=== PATIENT | female | born 1950 | race American Indian/Alaskan Native ===

== ENCOUNTER 2017-04-13 08:17 | Outpatient (CLI) | payer MEDICARE, BC ==
[2017-04-13 08:49] LABS: Hematocrit 40.5 % (30.3-42.9); Hemoglobin 13.5 gm/dl (10.1-14.3); Mean Corpuscular HGB Conc 33 % (30-34); Mean Corpuscular Hemoglobin 32 pg (28-32); Mean Corpuscular Volume 95 fl (79-97); Platelet Count 174 K/mm3 (140-440); Red Blood Count 4.28 M/mm3 (3.65-5.03); White Blood Count 5.4 K/mm3 (4.5-11.0)
[2017-04-13 08:54] LABS: Bilirubin,Urine NEG (Negative); Blood,Urine NEG (Negative); Ketones,Urine NEG (Negative); Leukocyte Esterase,Urine NEG (Negative); Nitrite,Urine NEG (Negative); Protein,Urine <15 mg/dL mg/dL (Negative); Urobilinogen,Urine < 2.0 mg/dL (<2.0)
[2017-04-13 08:59] LABS: WBC,Urine < 1.0 /HPF (0.0-6.0)
[2017-04-13 09:13] LABS: Albumin 4.3 g/dL (3.9-5); Albumin/Globulin Ratio 1.2 %; BUN/Creatinine Ratio 20.9; Bilirubin,Total 0.3 mg/dL (0.1-1.2); Calcium 9.6 mg/dL (8.4-10.2); Chloride 102.9 mmol/L (98-107); Potassium 4.2 mmol/L (3.6-5.0); Total Protein 7.8 g/dL (6.3-8.2)
== END 2017-04-13 08:18 | disposition home or self-care (01) ==
LOC: CARD 08:17
PROVIDERS: ATTEND Internal Medicine
DX: N39.0 Urinary tract infection, site not specified (principal); R53.83 Other fatigue; R55 Syncope and collapse; I10 Essential (primary) hypertension; M06.9 Rheumatoid arthritis, unspecified
CPT/HCPCS: 36415; 80053; 81001; 85027; 93005; 93010

== ENCOUNTER 2017-05-06 06:25 | Inpatient (IN) | payer BC, MEDICARE, OTHER ==
--- NOTE | 2017-04-28 12:58 | Anesthesia Consultation ---
Anesthesia Consult and Med Hx Date of service: 04/28/17 - Airway Anesthetic Teeth Evaluation: Dentures, Edentulous ROM Head & Neck: Adequate Mental/Hyoid Distance: Adequate Mallampati Class: Class II Intubation Access Assessment: Probably Good - Pulmonary Exam CTA: Yes - Cardiac Exam Cardiac Exam: RRR - Pre-Operative Health Status ASA Pre-Surgery Classification: ASA3 Proposed Anesthetic Plan: Epidural, Spinal Nerve Block: adductor canal - Pulmonary Hx Smoking: Yes (quit 20 yrs ago) Hx Asthma: No SOB: No Hx Sleep Apnea: No ([facility] PRE SCREEN HIGH RISK) - Cardiovascular System Hx Hypertension: Yes (2004) Hx Coronary Artery Disease: No Hx Heart Attack/AMI: No Hx Angina: No Hx Percutaneous Transluminal Coronary Angioplasty (PTCA): No Hx Cardia Arrhythmia: No Hx Pacemaker: No Hx Internal Defibrillator: No Hx Valvular Heart Disease: No Hx Heart Murmur: No Hx Peripheral Vascular Disease: No - Central Nervous System Hx Neuromuscular Disorder: Yes (rheumatoid arthritis) Hx Seizures: No CVA: No Hx Back Pain: No Hx Psychiatric Problems: No - Gastrointestinal Hx Ulcer: No Hx Gastroesophageal Reflux Disease: No - Endocrine Hx Renal Disease: No Hx End Stage Renal Disease: No Hx Cirrhosis: No Hx Liver Disease: No Hx Insulin Dependent Diabetes: No Hx Non-Insulin Dependent Diabetes: No Hx Thyroid Disease: No Hx Hypothyroidism: No Hx Hyperthyroidism: No - Hematic Hx Anemia: No Hx Sickle Cell Disease: No - Other Systems Hx Alcohol Use: Yes (s) Hx Substance Use: No Hx Cancer: No Hx Obesity: Yes
[~2017-05-06 06:25] MED LIST: ANCEF/STERILE WATER 2 GM/20 ML 2 GM/20 ML SYRINGE IV SCH; PEPCID PO NR; VERSED IV NR; ceFAZolin 2 GM in NACL 0.9% 100 ML IV ONE
[2017-05-06] MEDS ORDERED: NACL BACTERIOSTATIC INFILTRATI ONE (06:28)
[2017-05-06] MEDS ORDERED: DIPRIVAN 10 MG/ML IV ONE ×2 (07:31→10:02)
[2017-05-06] MEDS ORDERED: XYLOCAINE MPF 2% ONE (07:32)
[2017-05-06] MEDS ORDERED: ZEMURON IV ONE (07:32)
[2017-05-06] MEDS: NACL 0.9% 1000 ML 1,000 ML IV SCH ×3 (07:35→22:18)
[2017-05-06] MEDS ORDERED: TRANEXAMIC ACID ONE (07:43)
[2017-05-06] MEDS ORDERED: NEOSPORIN GU IR ONE ×2 (07:44→09:57)
[2017-05-06] MEDS ORDERED: MARCAINE-EPI/PF 0.5%-1:200,000 INFILTRATI ONE ×3 (07:44→09:59)
[2017-05-06] MEDS ORDERED: NACL 0.9% 200 ML ONE (07:44)
--- NOTE | 2017-05-06 07:55 | Anesthesia Day of Surgery ---
Anesthesia Day of Surgery - Day of Surgery Patient Examined: Yes Patient H&P Reviewed: Yes Patient is NPO: Yes Beta Blockers: Yes
[2017-05-06] MEDS ORDERED: NEURONTIN ONE (08:08)
[2017-05-06] MEDS ORDERED: SUBLIMAZE ONE (08:09)
[2017-05-06] MEDS ORDERED: DECADRON ONE (08:09)
[2017-05-06] MEDS ORDERED: CLONIDINE 1,000 MCG/10 ML VIAL EP ONE (08:10)
--- NOTE | 2017-05-06 09:40 | Admit Criteria Form ---
Admission Criteria Documentation: AMBULATORY SURGERY EXCEPTION CRITERIA Ambulatory Surgery Exception Criteria ( Place 'X' for any and all applicable criteria): Surgery or procedure performed on ambulatory basis may require inpatient stay for[A] ANY ONE of the following(1)(2)(3)(4)(5)(6)(7)(8)(9): [X] I. A preoperative situation, condition, or finding that warrants inpatient stay as indicated by ANY ONE of the following: [] a) Inpatient care needed because of severity of a disease or condition rather than the surgery (eg, severe cardiac or respiratory disease, severe infection) (15) (16 ) (17) (18) [] b) Emergent procedure (eg, angioplasty for acute ischemia)(19) [] c) Complex surgical approach or situation as indicated by ANY ONE of the following(3): [] i) Open approach needed instead of usual endoscopic, transcatheter, or other less invasive procedure [] ii) Difficult approach because of previous operation [] iii) Airway monitoring required after open neck procedures(20)(21) [] iv) Large mass requiring unusually extensive dissection [] v) Additional complicating feature requiring inpatient care (eg, drain management)(22(23): [X] d) Major surgery in a pt with high anesthetic risk as indicated by ANY ONE of the following (2)(3)(5)(7)(8): [X] i) ASA risk class III or higher (severe systemic disease impairing function) [D] [] ii) Advanced age (eg, older than 85 years)(14)(24) [] iii) Symptomatic heart failure(25) [] iv) Symptomatic asthma or COPD(8)(21) [] v) Morbid obesity with hemodynamic or respiratory problems(20)( 21)(26)(27) [] vi) Obstructive sleep apnea(20)(21) [] vii) Former premature infants who are younger than 60 weeks [] viii) High risk for severe postoperative abnormalities (eg, severe postoperative hypocalcemia after parathyroidectomy for severe hyperparathyroidism)(27)( 28) [] ix) Unstable angina(25) [] e) Drug-related risk requiring inpatient stay as indicated by ANY ONE of the following(5)(10)(14)(32)(33) [] i) Procedure requires discontinuing drugs or other therapy (eg , antiarrhythmic medication, antiseizure medication), which necessitates inpatient observation or treatment.(18)(31) [] ii) Major surgery and high risk drug use as indicated by ANY ONE of the following: [] 1) Active abuse of cocaine or similar drug [] 2) Monoamine oxidase inhibitor use [] 3) Other drug identified as posing risk [] f) Inadequate outpatient care situation as indicated by ANY ONE of the following(5)(10)(14)(32)(33) [] i) Patient lives remote from medical facility and procedure has urgent complication potential, and temporary nearby residence cannot be arranged [] ii) Patient will have postprocedure incapacitation and inadequate assistance at home, or alternative level of care cannot be arranged. [] iii) Patient will have long general anesthesia or procedure side effect resolution time, and competent person to stay with patient on first postoperative night at home or alternative level of care cannot be arranged. []iv) Other inadequate outpatient situation that cannot be handled by other means [] II. A perioperative event, condition, or finding that warrants inpatient stay as indicated by ANY ONE of the following (1)(2)(3): [] a) Inadequate physiologic recovery: cardiovascular, respiratory, or hemodynamic status not normal or near preoperative baseline(18) [] b) Hemodynamic instability [] c) Patient not alert with near normal or baseline mental status [] d) Temperature not normal or as expected and not appropriate for outpatient treatment of condition [] e) Ambulatory or appropriate activity level status not yet achieved post procedure [E](34)(35)(36) [] f) Operative site not appropriate (eg, unexpected or excessive drainage or bleeding) [] g) Postoperative effects not resolved or adequately managed (eg, significant pain or vomiting not appropriate for outpatient or next level of care)(10)(12) [] h) Complicating features requiring inpatient care as indicated by ANY ONE of the following(37): [] i) Severe complications of procedure (eg, bowel injury, airway compromise, vascular injury,severe hemorrhage) [] ii) Extensive (eg, dissection far beyond usual scope of procedure ) or prolonged (eg, 120 minutes beyond usual) surgery needed requiring inpatient postoperative care [] iii) Conversion to an open or complex procedure that requires inpatient care (eg, open vs laparoscopic cholecystectomy, abdominal vs vaginal hysterectomy)(38) [] iv) Comorbid condition or test result identified during or post procedure that requires inpatient care (7) [] v) Malignant hyperthermia(30) [] vi) Other complicating feature requiring inpatient care(22)(23) Inpatient stay may be needed until ALL of the following are present (1)(2)(3)(4) (5)(6)(10)(14)(33)(40): []a) Physiologic recovery: cardiovascular, respiratory, and hemodynamic status normal or near preoperative baseline []b) Hemodynamic stability []c) Patient alert, with near normal or baseline mental status []d) Temperature appropriate: patient afebrile or temperature appropriate for outpt treatment of condition []e) Activity level appropriate: ambulatory or appropriate activity level post procedure []f) Operative site appropriate as indicated by ALL of the following: []i) Site dry or with expected drainage []ii) Any blood noted is as expected for procedure. []g) Postoperative effects resolved or managed as indicated by ALL of the following: []i) Pain management appropriate for outpatient (or next level of) care(10) []ii) Minimal nausea and vomiting: if present, successfully treated with oral medication(12) []iii) Headache, dizziness, or drowsiness (if present) are mild. []h) Voiding status acceptable as indicated by ANY ONE of the following: []i) Voiding spontaneously []ii) No voiding but instructions given for follow-up in 6 to 8 hours []iii) Urinary catheter in place, and instructions given for follow-up []i) Complicating features requiring inpatient care manageable at a lower level of care(37) []j) Comorbid conditions manageable at a lower level of care(37) The original [employer] content created by [employer] has been revised. The portions of the content which have been revised are identified through the use of italic text or in bold, and [facility] [employer] has neither reviewed nor approved the modified material. All other unmodified content is copyright [employer]. Please see references footnoted in the original [employer] edition 2016 Admission Criteria Met: Yes
[2017-05-06] MEDS ORDERED: ePHEDrine SULFATE ONE (09:41)
[2017-05-06] MEDS ORDERED: TRANEXAMIC ACID IV ONE (09:58)
[2017-05-06] MEDS ORDERED: NACL 0.9% IR ONE ×2 (09:58→10:00)
[2017-05-06] MEDS ORDERED: DILAUDID ONE (10:28)
[2017-05-06] MEDS ORDERED: ROBINUL ONE (11:54)
[2017-05-06] MEDS ORDERED: NEOSTIGMINE ONE (11:54)
[2017-05-06] MEDS ORDERED: ZOFRAN ONE (11:54)
[2017-05-06] MEDS ORDERED: DILAUDID IV PRN (12:01)
[2017-05-06] MEDS ORDERED: SODIUM CHLORIDE FLUSH SYRINGE 10 ML IV PRN (12:01)
[2017-05-06] MEDS: DILAUDID IV PRN ×4 (12:07→12:25)
--- NOTE | 2017-05-06 12:21 | Post Anesthesia Evaluation ---
- Post Anesthesia Evaluation Patient Participated: Yes Airway Patent: Yes Stable Respiratory Function: Yes Nausea/Vomiting: No Temp > 96.8F: Yes Pain Manageable: Yes Adequeate Hydration: Yes Anesthesia Complications: No
[2017-05-06] MEDS: APRESOLINE IV PRN ×2 (13:05→13:50)
[2017-05-06] MEDS: ANCEF/NS 1 GM/50 ML 1 GM/50 ML BAG IV SCH (18:14)
[2017-05-06] MEDS ORDERED: CATAPRES PO ONE (22:00)
--- NOTE | 2017-05-06 23:33 | Consultation ---
History of Present Illness - Reason for Consult Consult date: 05/06/17 medical management Requesting physician: MERLENE NUÑEZ - History of Present Illness 66 y/o AAF with L TKA. Post op doing well. Past History Past Medical History: arthritis, hypertension, hyperlipidemia, other (RA) Medications and Allergies Allergies Allergy/AdvReac Type Severity Reaction Status Date / Time aspirin Allergy Severe Shortness Verified 04/28/17 12:28 of Breath Sulfa (Sulfonamide Allergy Severe Rash Verified 04/28/17 12:28 Antibiotics) Home Medications Medication Instructions Recorded Confirmed Last Taken Type RX: Carvedilol 6.25 mg PO BID 06/22/13 04/28/17 05/06/17 06:00 History RX: Clonidine HCl 0.2 mg PO TID 06/22/13 04/28/17 05/06/17 06:00 History RX: Prednisone [predniSONE] 2.5 mg PO DAILY 06/22/13 04/28/17 05/06/17 06:00 History Furosemide [Lasix] 20 mg PO QDAY 04/28/17 04/28/17 05/05/17 History Latanoprost 0.005% [Xalatan 0.005%] 1 drop OP QPM 04/28/17 04/28/17 05/05/17 History Methotrexate Sodium [Trexall] 10 mg PO QWEEK 04/28/17 04/28/17 05/05/17 History Potassium Chloride [Klor-Con 10] 10 meq PO DAILY 04/28/17 04/28/17 05/05/17 History Active Meds: Active Medications Hydralazine HCl (Apresoline) 5 mg IV Q30MIN PRN PRN Reason: Hypertension Stop: 05/07/17 13:31 Last Admin: 05/06/17 13:50 Dose: 5 mg Hydromorphone HCl (Dilaudid) 0.5 mg IV Q3H PRN PRN Reason: Pain , Severe (7-10) Sodium Chloride (Nacl 0.9% 1000 Ml) 1,000 mls @ 125 mls/hr IV DIRECT JAY Last Admin: 05/06/17 22:18 Dose: 125 mls/hr Oxycodone/Acetaminophen (Percocet 5/325) 2 tab PO Q6H PRN PRN Reason: Pain, Moderate (4-6) Rivaroxaban (Xarelto) 10 mg PO QDAY JAY PRN Reason: Protocol Sodium Chloride (Sodium Chloride Flush Syringe 10 Ml) 10 ml IV PRN PRN PRN Reason: LINE FLUSH Review of Systems All systems: negative Exam - Constitutional Vitals: Temp Pulse Resp BP Pulse Ox 98.1 F 82 20 138/85 100 05/06/17 23:10 05/06/17 23:10 05/06/17 23:10 05/06/17 23:10 05/06/17 23:10 General appearance: Present: no acute distress, well-nourished - EENT Eyes: Present: PERRL ENT: hearing intact, clear oral mucosa - Neck Neck: Present: supple, normal ROM - Respiratory Respiratory effort: normal Respiratory: bilateral: CTA - Cardiovascular Heart Sounds: Present: S1 & S2. Absent: rub, click - Extremities Extremities: pulses symmetrical, No edema Peripheral Pulses: within normal limits - Abdominal General gastrointestinal: Present: soft, non-tender, non-distended, normal bowel sounds Female genitourinary: Present: normal - Integumentary Integumentary: Present: clear, warm, dry - Musculoskeletal Musculoskeletal: gait normal, strength equal bilaterally - Psychiatric Psychiatric: appropriate mood/affect, intact judgment & insight - Neurologic Neurologic: CNII-XII intact, moves all extremities Assessment and Plan - Patient Problems (1) History of total knee arthroplasty Current Visit: Yes Status: Acute Qualifiers: Laterality: left Qualified Code(s): Z96.652 - Presence of left artificial knee joint Plan to address problem: Postop doing well (2) DJD (degenerative joint disease) Current Visit: No Status: Chronic Qualifiers: Osteoarthritis location: multiple joints Osteoarthritis type: O Spinal region: S Spinal osteoarthritis complication: S Laterality: L Plan to address problem: Percocet 5/325 po q4 prn (3) HTN (hypertension) Current Visit: No Status: Chronic Qualifiers: Hypertension type: essential hypertension Qualified Code(s): I10 - Essential (primary) hypertension Plan to address problem: Cont Clonidine and Carvedilol (4) Rheumatoid arthritis Current Visit: No Status: Chronic Qualifiers: Rheumatoid arthritis location: multiple sites Rheumatoid factor presence: R Laterality: L Plan to address problem: On Methotrexate q weekly 10 mg (5) Pain management Current Visit: Yes Status: Acute Plan to address problem: Adequate (6) DVT prophylaxis Current Visit: Yes Status: Acute Plan to address problem: On SCD's and ASa
[2017-05-07] MEDS: COREG PO SCH ×3 (00:15→21:07)
[2017-05-07] MEDS: ANCEF/NS 1 GM/50 ML 1 GM/50 ML BAG IV SCH (00:26)
[2017-05-07] MEDS: XARELTO PO SCH (09:24)
[2017-05-07] MEDS: LASIX PO SCH (09:25)
[2017-05-07] MEDS: PERCOCET 5/325 PO PRN ×2 (09:26→15:21)
[2017-05-07] MEDS: DELTASONE PO SCH (09:27)
[2017-05-07] MEDS: K-DUR PO SCH (09:28)
[2017-05-07] MEDS: CATAPRES PO SCH ×3 (09:30→21:06)
--- NOTE | 2017-05-07 10:55 | Progress Note ---
Subjective Date of service: 05/07/17 Interval history: 1st POD after total knee replacement Patient is in the bed, complains of no pain. She was comfortable all night. Pain is well controlled with pain meds. Prepare to walk with physical therapist. No residual neurological deficit. No anesthesia complications Objective - Constitutional Vitals: Vital Signs - 12hr 05/06/17 05/07/17 05/07/17 23:10 04:13 07:00 Temperature 98.1 F 99.0 F 98.9 F Pulse Rate Pulse Rate [ 82 76 78 Left] Respiratory 20 20 18 Rate Blood Pressure Blood Pressure 138/85 154/84 145/76 [Left Arm] O2 Sat by Pulse 100 100 97 Oximetry 05/07/17 05/07/17 09:23 10:00 Temperature Pulse Rate 78 Pulse Rate [ Left] Respiratory Rate Blood Pressure 145/76 Blood Pressure [Left Arm] O2 Sat by Pulse 97 Oximetry
--- NOTE | 2017-05-07 14:03 | Progress Note ---
Assessment and Plan - Patient Problems (1) History of total knee arthroplasty Current Visit: Yes Status: Acute Qualifiers: Laterality: left Qualified Code(s): Z96.652 - Presence of left artificial knee joint Plan to address problem: Postop doing well (2) DJD (degenerative joint disease) Current Visit: No Status: Chronic Qualifiers: Osteoarthritis location: multiple joints Osteoarthritis type: O Spinal region: S Spinal osteoarthritis complication: S Laterality: L Plan to address problem: Percocet 5/325 po q4 prn (3) HTN (hypertension) Current Visit: No Status: Chronic Qualifiers: Hypertension type: essential hypertension Qualified Code(s): I10 - Essential (primary) hypertension Plan to address problem: Cont Clonidine and Carvedilol (4) Rheumatoid arthritis Current Visit: No Status: Chronic Qualifiers: Rheumatoid arthritis location: multiple sites Rheumatoid factor presence: R Laterality: L Plan to address problem: On Methotrexate q weekly 10 mg (5) Pain management Current Visit: Yes Status: Acute Plan to address problem: Adequate (6) DVT prophylaxis Current Visit: Yes Status: Acute Plan to address problem: On SCD's and ASa Subjective Date of service: 05/07/17 Principal diagnosis: L TKA Interval history: Postop doing well.No complications. Objective - Constitutional Vitals: Vital Signs - 12hr 05/07/17 05/07/17 05/07/17 04:13 07:00 09:23 Temperature 99.0 F 98.9 F Pulse Rate 78 Pulse Rate [ 76 78 Left] Respiratory 20 18 Rate Blood Pressure 145/76 Blood Pressure 154/84 145/76 [Left Arm] O2 Sat by Pulse 100 97 Oximetry 05/07/17 10:00 Temperature Pulse Rate Pulse Rate [ Left] Respiratory Rate Blood Pressure Blood Pressure [Left Arm] O2 Sat by Pulse 97 Oximetry General appearance: Present: no acute distress, well-nourished - EENT Eyes: PERRL, EOM intact ENT: hearing intact, clear oral mucosa Ears: bilateral: normal - Neck Neck: supple, normal ROM - Respiratory Respiratory effort: normal Respiratory: bilateral: CTA - Breasts Breasts: normal - Cardiovascular Rhythm: regular Heart Sounds: Present: S1 & S2. Absent: gallop, rub Extremities: pulses intact, No edema, normal color, Full ROM - Gastrointestinal General gastrointestinal: Present: soft, non-tender, non-distended, normal bowel sounds - Genitourinary Female genitourinary: normal - Integumentary Integumentary: clear, warm, dry - Musculoskeletal Musculoskeletal: 1, strength equal bilaterally - Neurologic Neurologic: moves all extremities - Psychiatric Psychiatric: memory intact, appropriate mood/affect, intact judgment & insight
[2017-05-07] MEDS: NACL 0.9% 1000 ML 1,000 ML IV SCH (21:08)
[2017-05-07] MEDS ORDERED: XALATAN 0.005% OU SCH (22:00)
[2017-05-08] MEDS: PERCOCET 5/325 PO PRN ×2 (03:38→09:11)
[2017-05-08] MEDS: COREG PO SCH (09:05)
[2017-05-08] MEDS: LASIX PO SCH (09:05)
[2017-05-08] MEDS: XARELTO PO SCH (09:06)
[2017-05-08] MEDS: CATAPRES PO SCH ×2 (09:06→14:45)
[2017-05-08] MEDS: DELTASONE PO SCH (09:06)
[2017-05-08] MEDS: K-DUR PO SCH (09:06)
[2017-05-08] MEDS: NACL 0.9% 1000 ML 1,000 ML IV SCH (09:08)
[2017-05-08 17:55] VITALS: BP 181/89
[2017-05-13] MEDS ORDERED: METHOTREXATE SODIUM 10 MG PO SCH (10:00)
== END 2017-05-08 18:25 | disposition home health service (06) | DRG 470 ==
LOC: 3A 06:25 → 2B-SURG 13:55
PROVIDERS: ADMIT Orthopaedic Surgery; ATTEND Orthopaedic Surgery
PROC: 0SRD0JZ Replacement of Left Knee Joint with Synthetic Substitute, Open Approach (ICD-10-PCS; principal; 2017-05-06)
DX: M17.12 Unilateral primary osteoarthritis, left knee (principal); I10 Essential (primary) hypertension; M06.9 Rheumatoid arthritis, unspecified; E66.1 Drug-induced obesity; Z87.891 Personal history of nicotine dependence; Z88.6 Allergy status to analgesic agent; Z88.2 Allergy status to sulfonamides; Z79.899 Other long term (current) drug therapy; Z68.38 Body mass index [BMI] 38.0-38.9, adult
CPT/HCPCS: 64450; 87116; 88304; 88305; 88311; A4217; C1776; J0360; J0690; J0735; J1100; J1170; J2250; J2405; J2704; J2710; J3010; J7030; J7512

== ENCOUNTER 2017-06-25 07:57 | Outpatient (CLI) | payer OTHER ==
[2017-06-25] MEDS ORDERED: XYLOCAINE TOPICAL 4% TP ONE (09:01)
== END 2017-06-25 07:58 | disposition home or self-care (01) ==
LOC: WOUND 07:57
PROVIDERS: ATTEND Nurse Practitioner
DX: T81.89XA Other complications of procedures, not elsewhere classified, initial encounter (principal); I10 Essential (primary) hypertension; M06.9 Rheumatoid arthritis, unspecified; Z96.659 Presence of unspecified artificial knee joint; Z90.710 Acquired absence of both cervix and uterus; Y83.8 Other surgical procedures as the cause of abnormal reaction of the patient, or of later complication, without mention of misadventure at the time of the procedure; Y92.89 Other specified places as the place of occurrence of the external cause
CPT/HCPCS: 11042; G0463

== ENCOUNTER 2017-07-02 11:04 | Outpatient (CLI) | payer OTHER ==
[2017-07-02] MEDS ORDERED: XYLOCAINE TOPICAL 4% TP ONE ×2 (12:10→12:22)
== END 2017-07-02 11:05 | disposition home or self-care (01) ==
LOC: WOUND 11:04
PROVIDERS: ATTEND Nurse Practitioner
DX: T81.89XD Other complications of procedures, not elsewhere classified, subsequent encounter (principal); I10 Essential (primary) hypertension; M06.9 Rheumatoid arthritis, unspecified; Z96.659 Presence of unspecified artificial knee joint; Z90.710 Acquired absence of both cervix and uterus; Y83.8 Other surgical procedures as the cause of abnormal reaction of the patient, or of later complication, without mention of misadventure at the time of the procedure

== ENCOUNTER 2017-07-09 13:13 | Outpatient (CLI) | payer OTHER ==
[2017-07-09] MEDS ORDERED: XYLOCAINE TOPICAL 2% TP ONE (13:36)
== END 2017-07-09 13:14 | disposition home or self-care (01) ==
LOC: WOUND 13:13
PROVIDERS: ATTEND Nurse Practitioner
DX: T81.89XD Other complications of procedures, not elsewhere classified, subsequent encounter (principal); M06.9 Rheumatoid arthritis, unspecified; I10 Essential (primary) hypertension; Z96.659 Presence of unspecified artificial knee joint; Z90.710 Acquired absence of both cervix and uterus; Y83.8 Other surgical procedures as the cause of abnormal reaction of the patient, or of later complication, without mention of misadventure at the time of the procedure

== ENCOUNTER 2017-07-16 12:53 | Outpatient (CLI) | payer OTHER | END 2017-07-16 12:54 | disposition home or self-care (01) | LOC: WOUND 12:53 | PROVIDERS: ATTEND Nurse Practitioner | DX: T81.89XD Other complications of procedures, not elsewhere classified, subsequent encounter (principal); M05.862 Other rheumatoid arthritis with rheumatoid factor of left knee; I10 Essential (primary) hypertension; Z96.653 Presence of artificial knee joint, bilateral; Z90.710 Acquired absence of both cervix and uterus; Y83.8 Other surgical procedures as the cause of abnormal reaction of the patient, or of later complication, without mention of misadventure at the time of the procedure | CPT/HCPCS: 99214; G0463 ==

== ENCOUNTER 2017-09-30 10:17 | Outpatient (CLI) | payer MEDICARE ==
--- NOTE | 2017-09-30 11:26 | Mammography Report ---
Bilateral mammogram: Compared to 09/29/16. CAD study utilized. Findings: Predominance adipose tissue bilaterally. No mass or microcalcification. Benign densities right and left breast. Normal axilla. Impression: Benign findings. Annual followup recommended. BI-RADS CATEGORY: 2 = Benign ACR BI-RADS MAMMOGRAPHIC CODES: 0 = Needs additional imaging evaluation; 1 = Negative; 2 = Benign; 3 = Probably benign; 4 = Suspicious; 5 = Malignant; 6 = Known biopsy-proven malignancy COMMENT: 1. Dense breast tissue, i.e., adenosis, fibrocystic changes, etc., may obscure an underlying neoplasm. 2. Approximately 10% of cancers are not detected with mammography. 3. A negative mammography report should not delay biopsy if a clinically suspicious mass is present. COMMENT: Patient follow-up letters are generated in [employer].
== END 2017-09-30 10:18 | disposition home or self-care (01) ==
LOC: MAMMO 10:17
PROVIDERS: ATTEND Obstetrics & Gynecology
DX: Z12.31 Encounter for screening mammogram for malignant neoplasm of breast (principal)
CPT/HCPCS: 77067; G0202

== ENCOUNTER 2019-07-05 10:34 | Emergency (ER) | payer MEDICARE ==
[2019-07-05 10:42] VITALS: BP 141/85
[2019-07-05 11:00] LABS: Basophils % (Auto) 0.5 % (0.0-1.8); Eosinophils # (Auto) 0.2 K/mm3 (0.0-0.4); Hematocrit 33.8 % (30.3-42.9); Hemoglobin 11.5 gm/dl (10.1-14.3); Lymphocytes # (Auto) 1.3 K/mm3 (1.2-5.4); Lymphocytes % (Auto) 22.8 % (13.4-35.0); Mean Corpuscular HGB Conc 34 % (30-34); Mean Corpuscular Volume 95 fl (79-97); Monocytes # (Auto) 0.8 K/mm3 (0.0-0.8); Monocytes % (Auto) 14.7 % (0.0-7.3); Platelet Count 203 K/mm3 (140-440); Red Blood Count 3.57 M/mm3 (3.65-5.03)
[2019-07-05 11:20] LABS: Calcium 9.4 mg/dL (8.4-10.2)
--- NOTE | 2019-07-05 13:05 | Emergency Department Report ---
HPI - General Chief Complaint: GI Bleed Time Seen by Provider: 07/05/19 12:09 - HPI HPI: 68-year-old female presents to the emergency department with complaint of some black stool intermittently over the past week. She denies any back pain, abdominal pain, nausea, vomiting or fever. She has a history of rheumatoid arthritis and hypertension. She denies taking any recent anti- inflammatories. Prior to the black stool, the patient had some generalized viral syndrome and had been taking a few doses of Pepto-Bismol. She contacted her primary care physician, Dr. Shah, was told to come to the emergency department for further evaluation. ED Past Medical Hx - Past Medical History Hx Hypertension: Yes Hx Heart Attack/AMI: No Hx Congestive Heart Failure: No Hx Diabetes: No Hx Deep Vein Thrombosis: No Hx Liver Disease: No Hx Renal Disease: No Hx Sickle Cell Disease: No Hx Arthritis: Yes (rheumatoid arthritis) Hx Seizures: No Hx Asthma: No Hx COPD: No - Surgical History Hx Pacemaker: No Hx Internal Defibrillator: No Hx Breast Surgery: Yes - Social History Smoking Status: Never Smoker Substance Use Type: None - Medications Home Medications: Home Medications Medication Instructions Recorded Confirmed Last Taken Type Carvedilol 6.25 mg PO BID 06/22/13 04/28/17 05/06/17 06:00 History Clonidine HCl 0.2 mg PO TID 06/22/13 04/28/17 05/06/17 06:00 History predniSONE 2.5 mg PO DAILY 06/22/13 04/28/17 05/06/17 06:00 History Furosemide [Lasix] 20 mg PO QDAY 04/28/17 04/28/17 05/05/17 History Latanoprost 0.005% [Xalatan 0.005%] 1 drop OP QPM 04/28/17 04/28/17 05/05/17 History Methotrexate Sodium [Trexall] 10 mg PO QWEEK 04/28/17 04/28/17 05/05/17 History Potassium Chloride [Klor-Con 10] 10 meq PO DAILY 04/28/17 04/28/17 05/05/17 History ED Review of Systems ROS: Stated complaint: BLACK STOOL/DOC ORDERED VISIT Other details as noted in HPI Comment: All other systems reviewed and negative Constitutional: denies: chills, fever Respiratory: denies: cough, shortness of breath Gastrointestinal: melena. denies: abdominal pain, vomiting Genitourinary: denies: dysuria, discharge Musculoskeletal: denies: back pain, arthralgia Physical Exam - Physical Exam Vital Signs: Vital Signs 07/05/19 10:41 Temperature 99.9 F H Pulse Rate 63 Respiratory 16 Rate Blood Pressure 141/85 [Left] O2 Sat by Pulse 100 Oximetry Physical Exam: GENERAL: The patient is well-developed well-nourished. HENT: Normocephalic. Atraumatic. Patient has moist mucous membranes. EYES: Extraocular motions are intact. NECK: Supple. Trachea is midline. CHEST/LUNGS: Clear to auscultation. There is no respiratory distress noted. HEART/CARDIOVASCULAR: Regular. There is no tachycardia. There is no murmur. ABDOMEN: Abdomen is soft, nontender. Patient has normal bowel sounds. There is no abdominal distention. SKIN: Skin is warm and dry. NEURO: The patient is awake, alert, and oriented. The patient is cooperative. The patient has no focal neurologic deficits. Normal speech. MUSCULOSKELETAL: There is no tenderness or deformity. There is no limitation range of motion. There is no evidence of acute injury. RECTAL: There is a nonthrombosed hemorrhoid at the 4 o'clock position. No gross blood. Stool is brown in color and negative on guaiac testing. ED Course Vital Signs 07/05/19 10:41 Temperature 99.9 F H Pulse Rate 63 Respiratory 16 Rate Blood Pressure 141/85 [Left] O2 Sat by Pulse 100 Oximetry ED Medical Decision Making - Lab Data Result diagrams: 07/05/19 10:50 07/05/19 10:50 - Medical Decision Making This patient presented with the complaint of some possible melena over the past week. After a lengthy discussion, I believe that the patient's previous black stool could have been secondary to the Pepto-Bismol that she was taking prior to the black stool being seen. I did a rectal examination with the transportation planning technician at bedside as a latexer and the patient did not have any gross bleeding. There was a small amount of stool obtained that was brown in color and does not appear consistent with melena. It was tested and was negative on guaiac testing for blood. Her labs are unremarkable including a hemoglobin of 11.5. She has no abdominal pain, back pain or any pain whatsoever. Vital signs stable throughout her ED course. She'll be discharged home to follow-up with the mallet cutter, for which she has an appointment on Thursday. She will return to the ER with any worsening of her symptoms or any acute distress. - Differential Diagnosis hemorrhoid, peptic ulcer disease, malignancy Critical Care Time: No Critical care attestation.: If time is entered above; I have spent that time in minutes in the direct care of this critically ill patient, excluding procedure time. ED Disposition Clinical Impression: Rectal bleeding Disposition: DC-01 TO HOME OR SELFCARE Is pt being admited?: No Condition: Stable Instructions: Rectal Bleeding (ED) Additional Instructions: Please follow-up with the mallet cutter on Thursday as previously scheduled. Return to the emergency Department with any worsening of your symptoms or any acute distress. Referrals: ISABEL SHAH MD [Primary Care Provider] - 3-5 Days Time of Disposition: 13:05
== END 2019-07-05 13:31 | disposition home or self-care (01) ==
LOC: ED 10:34
DX: K62.5 Hemorrhage of anus and rectum (principal); I10 Essential (primary) hypertension; M19.90 Unspecified osteoarthritis, unspecified site; Z79.899 Other long term (current) drug therapy; Z88.6 Allergy status to analgesic agent; Z88.2 Allergy status to sulfonamides
CPT/HCPCS: 36415; 80048; 85025; 99283

== ENCOUNTER 2019-08-08 08:36 | Outpatient (CLI) | payer MEDICARE ==
[2019-08-08] MEDS ORDERED: KINEVAC IV ONE ×2 (09:13→09:21)
[2019-08-08] MEDS ORDERED: WATER FOR INJ Sterile (PF) 10 ML ONE (09:14)
[2019-08-08] MEDS ORDERED: WATER FOR INJ Sterile (PF) IV ONE (09:22)
--- NOTE | 2019-08-08 11:20 | Nuclear Medicine Report ---
NUCLEAR MEDICINE HEPATOBILIARY SCAN INDICATION: R11.0 NAUSEA/R11.10 VOMITING/Z12.11 SCREEN FOR COLON CANCER. TECHNIQUE: Radiotracer: Tc-99m mebrofenin (by IV): 5.0 mCi. Gallbladder Stimulant: 1.86 mcg of CCK FINDINGS: Hepatic activity: Normal. Biliary activity: Normal. Common bile duct activity at 10 minutes. Gallbladder activity: Normal at 30 minutes. Small bowel activity: Normal at 10 minutes. The gallbladder ejection fraction measures 81%. The patient reports no symptoms during the infusion of CCK. IMPRESSION: No biliary obstruction. Signer Name: Nagi Harris Jr, MD Signed: 08/08/2019 11:16 AM Workstation Name: [id number]
== END 2019-08-08 08:37 | disposition home or self-care (01) ==
LOC: NM 08:36
PROVIDERS: ATTEND Student in an Organized Health Care Education/Training Program
DX: Z12.11 Encounter for screening for malignant neoplasm of colon (principal); R11.0 Nausea; R11.10 Vomiting, unspecified; I10 Essential (primary) hypertension; M19.90 Unspecified osteoarthritis, unspecified site
CPT/HCPCS: 78227; A9537; J2805

== ENCOUNTER 2019-10-03 08:52 | Outpatient (CLI) | payer MEDICARE ==
--- NOTE | 2019-10-04 09:19 | Mammography Report ---
DIGITAL SCREENING MAMMOGRAM WITH CAD, 10/03/2019 INDICATION: Routine screening mammography. TECHNIQUE: Digital bilateral 2D mammography was obtained in the craniocaudal and mediolateral obliq ue projections. This examination was interpreted with the benefit of Computer-Aided Detection analysi s. COMPARISON: 10/01/2018 FINDINGS: Breast Density: There are scattered areas of fibroglandular density. There is no evidence of dominant mass, suspicious calcifications or architectural distortion in eithe r breast. Bilateral benign arterial calcifications IMPRESSION: No mammographic evidence of malignancy. Follow up recommendation: Routine yearly BI-RADS Category 2: Benign. A "normal" or negative report should not discourage follow up or biopsy of a clinically significant f inding. A written summary of these findings will be mailed to the patient. The patient will be entered into a mammography reporting system which will generate a reminder letter for the patient's next appointmen t at the appropriate interval. The [employer] recommends yearly mammograms starting at age 40 and continuing as l ramone as a woman is in good health. Breast MRI is recommended for women with an approximate 20-25% or greater lifetime risk of breast cancer, including women with a strong family history of breast or ova rajeev cancer or who have been treated for Hodgkin's disease. Signer Name: Sawyer Jones MD Signed: 10/04/2019 9:15 AM Workstation Name: [id number]
== END 2019-10-03 08:53 | disposition home or self-care (01) ==
LOC: MAMMO 08:52
PROVIDERS: ATTEND Obstetrics & Gynecology
DX: Z12.31 Encounter for screening mammogram for malignant neoplasm of breast (principal)
CPT/HCPCS: 77067

== ENCOUNTER 2020-10-04 10:50 | Outpatient (CLI) | payer MEDICARE ==
--- NOTE | 2020-10-04 13:03 | Mammography Report ---
DIGITAL SCREENING MAMMOGRAM WITH CAD, 10/04/2020 CLINICAL INFORMATION / INDICATION: Routine screening mammography. TECHNIQUE: Digital bilateral 2D mammography was obtained in the craniocaudal and mediolateral obliqu e projections. This examination was interpreted with the benefit of Computer-Aided Detection analysis . COMPARISON: 10/03/2019, 10/01/2018 FINDINGS: Breast Density: There are scattered areas of fibroglandular density. No dominant mass, suspicious calcifications, or architectural distortion in either breast. IMPRESSION: No mammographic evidence of malignancy. Follow up recommendation: Routine yearly BI-RADS Category 1: Negative. A "normal" or negative report should not discourage follow up or biopsy of a clinically significant f inding. A written summary of these findings will be mailed to the patient. The patient will be entered into a mammography reporting system which will generate a reminder letter for the patient's next appointmen t at the appropriate interval. The [employer] recommends yearly mammograms starting at age 40 and continuing as l ramone as a woman is in good health. Breast MRI is recommended for women with an approximate 20-25% or greater lifetime risk of breast cancer, including women with a strong family history of breast or ova rajeev cancer or who have been treated for Hodgkin's disease. Signer Name: Stan Kwong MD Signed: 10/04/2020 12:59 PM Workstation Name: [id number]
--- NOTE | 2020-10-04 13:21 | Mammography Report ---
DEXA BONE DENSITY SCAN INDICATION / CLINICAL INFORMATION: m85.50. 69 years Female COMPARISON: 09/27/2015 LUMBAR SPINE (L1-L4): - Bone mineral density (BMD) = 0.959 g/cm2. - T-score = -0.8 - Z-score = 0.6 Change (%) since most recent prior (if available): +8.2 FEMORAL NECKS: - Left femoral neck Bone mineral density (BMD) = 0.911 g/cm2. - T-score = 0.6 - Z-score = 1.2 Change (%) since most recent prior (if available): -0.8 IMPRESSION: 1. WHO Classification: Normal bone density. Fracture Risk: Not Increased. BMD Reporting Guidelines (ISCD, 2015) BMD Reporting in Postmenopausal Women and in Men Age 50 and Older * T-scores are preferred. * The WHO densitometric classification is applicable. BMD Reporting in Females Prior to Menopause and in Males Younger Than Age 50 * Z-scores, not T-scores, are preferred. This is particularly important in children. * A Z-score of -2.0 or lower is defined as below the expected range for age, and a Z-score above -2. 0 is within the expected range for age. * Osteoporosis cannot be diagnosed in men under age 50 on the basis of BMD alone. * The WHO diagnostic criteria may be applied to women in the menopausal transition. http://www.iscd.org/official-positions/0881-akoy-krtydzlq-positions-adult/ Signer Name: Deejay Man MD Signed: 10/04/2020 1:16 PM Workstation Name: [id number]
== END 2020-10-04 10:51 | disposition home or self-care (01) ==
LOC: MAMMO 10:50
PROVIDERS: ATTEND Obstetrics & Gynecology
DX: Z12.31 Encounter for screening mammogram for malignant neoplasm of breast (principal); Z13.820 Encounter for screening for osteoporosis; M85.80 Other specified disorders of bone density and structure, unspecified site; N64.89 Other specified disorders of breast; Z78.0 Asymptomatic menopausal state
CPT/HCPCS: 77067; 77080

== ENCOUNTER 2021-10-07 08:09 | Outpatient (CLI) | payer MEDICARE ==
--- NOTE | 2021-10-08 12:57 | Mammography Report ---
DIGITAL SCREENING MAMMOGRAM WITH CAD, 10/07/2021 CLINICAL INFORMATION / INDICATION: Routine screening mammography. TECHNIQUE: Digital bilateral 2D mammography was obtained in the craniocaudal and mediolateral obliqu e projections. This examination was interpreted with the benefit of Computer-Aided Detection analysis . COMPARISON: 10/04/2020, 10/03/2019 FINDINGS: Breast Density: There are scattered areas of fibroglandular density. No dominant mass, suspicious calcifications, or architectural distortion in either breast. Postsurgical changes are again noted in the right breast. IMPRESSION: No mammographic evidence of malignancy. Follow up recommendation: Routine yearly BI-RADS Category 2: Benign. A "normal" or negative report should not discourage follow up or biopsy of a clinically significant f inding. A written summary of these findings will be mailed to the patient. The patient will be entered into a mammography reporting system which will generate a reminder letter for the patient's next appointmen t at the appropriate interval. The [employer] recommends yearly mammograms starting at age 40 and continuing as l ramone as a woman is in good health. Breast MRI is recommended for women with an approximate 20-25% or greater lifetime risk of breast cancer, including women with a strong family history of breast or ova rajeev cancer or who have been treated for Hodgkin's disease. Signer Name: Araseli Rossi MD Signed: 10/08/2021 12:52 PM Workstation Name: [id number]
== END 2021-10-07 08:10 | disposition home or self-care (01) ==
LOC: MAMMO 08:09
PROVIDERS: ATTEND Obstetrics & Gynecology
DX: Z12.31 Encounter for screening mammogram for malignant neoplasm of breast (principal)
CPT/HCPCS: 77067